=== PATIENT | female | born 1990 | race Caucasian/White ===

== ENCOUNTER → 2017-03-30 | Outpatient (CLI) | payer MEDICAID ==
[~2017-03-30] MED LIST: AMOX1TAB61 PO; D ME PO; DULO20CA45 PO; LORA-446 PO; MULT-658 PO; S-AD400T3 PO; TOPI100T24 PO
[2017-03-30 14:27] LABS: BLOOD UREA NITROGEN 19 mg/dL (7-18)
[2017-03-30 14:32] LABS: ASPARTATE AMINO TRANSFERASE 8 U/L (15-37)
== END | disposition home or self-care (01) ==
LOC: STAR 13:12
PROVIDERS: ATTEND Specialist
DX: Z01.818 Encounter for other preprocedural examination (principal); N83.209 Unspecified ovarian cyst, unspecified side; N80.0 Endometriosis of uterus; R79.1 Abnormal coagulation profile
CPT/HCPCS: 36415; 80053; 84703; 85025; 85610; 85730

== ENCOUNTER 2017-04-09 05:46 | Day surgery (SDC) | payer MEDICAID ==
[~2017-04-09] VITALS: Ht 175.3 cm; Wt 65.0 kg
[2017-04-09 06:45] VITALS: BP 115/79
[2017-04-09] MEDS ORDERED: BUPIVACAINE/PF-EPI 0.25% 1:200K ONE (06:59)
[2017-04-09] MEDS ORDERED: HEPARIN 1,000 UNITS/ML, 10ML ONE (06:59)
[2017-04-09] MEDS ORDERED: MIDAZOLAM 1 MG/ML, 2ML ONE (07:03)
[2017-04-09] MEDS ORDERED: FENTANYL PF 250 MCG/5ML ONE (07:04)
[2017-04-09 07:07] LABS: HCG UR OBC PASS
[2017-04-09] MEDS ORDERED: SCOPOLAMINE PATCH, 1.5MG PATCH.TD72 TD ONE ×2 (07:14)
[2017-04-09] MEDS ORDERED: GLYCOPYRROLATE 0.2MG/1ML ONE (07:42)
[2017-04-09] MEDS ORDERED: ROCURONIUM 10 MG/ML ONE (07:42)
[2017-04-09] MEDS ORDERED: ONDANSETRON 2MG/ML, 2ML ONE (07:42)
[2017-04-09] MEDS ORDERED: KETOROLAC 30 MG/1 ML ONE (07:42)
[2017-04-09] MEDS ORDERED: CEFAZOLIN 1,000 MG ONE (07:42)
[2017-04-09] MEDS ORDERED: PROPOFOL 10 MG/ML, 20ML ONE (07:42)
[2017-04-09] MEDS ORDERED: DEXAMETHASONE 4 MG/ML, 1ML ONE (07:42)
[2017-04-09] MEDS ORDERED: NEOSTIGMINE 1 MG/ML, 10ML ONE (07:42)
[2017-04-09] MEDS ORDERED: MIDAZOLAM 1 MG/ML, 2ML IV PRN (08:00)
[2017-04-09] MEDS ORDERED: PROMETHAZINE 25 MG/ML, 1ML IV PRN (08:00)
[2017-04-09] MEDS ORDERED: ONDANSETRON 2MG/ML, 2ML IVPush PRN (08:00)
[2017-04-09] MEDS ORDERED: FENTANYL PF 100 MCG/2ML IV PRN (08:00)
[2017-04-09] MEDS ORDERED: HYDROcodone/APAP 7.5-325MG/15ML UDC PO PRN (08:00)
[2017-04-09] MEDS ORDERED: OXYcodone 5 MG/5 ML ORAL.SOL UDC PO PRN (08:00)
[2017-04-09] MEDS ORDERED: ACETAMINOPHEN 325 MG TABLET PO PRN (08:00)
[2017-04-09] MEDS ORDERED: HYDROmorphone 2 MG/ML, 1ML ONE (08:56)
[2017-04-09] MEDS ORDERED: OXYcodone 5 MG/5 ML ORAL.SOL UDC ONE (08:56)
[2017-04-09] MEDS: HYDROmorphone 1 MG/ML, 1ML IV PRN ×2 (09:00→09:27)
[2017-04-09] MEDS ORDERED: PROMETHAZINE 25 MG/ML, 1ML ONE (09:06)
[2017-04-09] MEDS ORDERED: ACETAMINOPHEN 650 MG/20.3 ML UDC ONE (09:45)
[2017-04-09] MEDS ORDERED: FENTANYL PF 100 MCG/2ML ONE (09:46)
[2017-04-09] MEDS ORDERED: INSULIN REGULAR 100 UNITS/ML, 3ML VIAL SQ-INSULIN ONE (10:00)
== END 2017-04-09 13:25 | disposition home or self-care (01) ==
LOC: OUT 05:46
PROVIDERS: ATTEND Specialist
DX: N80.3 Endometriosis of pelvic peritoneum (principal); F41.9 Anxiety disorder, unspecified; G40.909 Epilepsy, unspecified, not intractable, without status epilepticus
CPT/HCPCS: 58662; 81025; 88304; J0690; J1100; J1170; J1885; J2250; J2405; J2550; J2704; J2710; J3010; J1644; J3490